=== PATIENT | female | born 1955 | race Caucasian/White ===

== ENCOUNTER 2024-04-03 12:19 | Day surgery (SDC) | payer OTHER, SELFPAY ==
[2024-03-24 10:29] VITALS: BMI 32.2
[2024-03-24 11:03] LABS: % Basophils 0.4 % (0-2); % Immature Granulocytes 0.2 % (0-0.5); % Lymphocytes 30.1 % (20.5-51.1); % Monocytes 8.5 % (1.7-9.3); % Neutrophils 58.8 % (42.2-75.2); Absolute Eosinophils 0.1 10^3/uL (0-0.7); Absolute Lymphocytes 1.6 10^3/uL (1.2-3.4); Absolute Monocytes 0.5 10^3/uL (0.1-0.6); Absolute Neutrophils 3.2 10^3/uL (1.4-6.5); Hematocrit 43.7 % (37.0-47.0); Hemoglobin 14.9 g/dL (12.0-16.0); Mean Corp Hgb Conc. 34.1 g/dL (33.0-37.0); Mean Corpuscular Hgb 28.7 pg (27.0-31.0); Mean Corpuscular Volume 84.2 fL (81.0-99.0); Mean Platelet Volume 9.7 fL (7.4-10.4); Nucleated Red Blood Cells % 0 %; Platelet Count 188 10^3/uL (130-400); Red Blood Cell Count 5.19 10^6/uL (4.20-5.40); Red Cell Dist. Width 12.6 % (11.5-14.5); White Blood Cell Count 5.4 10^3/uL (4.8-10.8)
[2024-03-24 11:49] LABS: ALT (SGPT) 24 U/L (0-35); AST (SGOT) 25 U/L (14-36); Albumin 4.2 g/dl (3.5-5.0); Alkaline Phosphatase 99 U/L (38-126); Blood Urea Nitrogen 23 mg/dl (7-17); Calcium 9.4 mg/dl (8.4-10.2); Carbon Dioxide 24 mmol/L (22-30); Chloride 105 mmol/L (98-107); Estimated Creatinine Clearance 88 ml/min; Glucose 208 mg/dl (70-99); Potassium 4.2 mmol/L (3.5-5.1); Sodium 138 mmol/L (135-145); Total Bilirubin 0.7 mg/dl (0.2-1.3); Total Protein 7.2 g/dl (6.3-8.2); eGFR > 60.00
[2024-04-03 12:36] VITALS: BMI 31.7
[2024-04-03 12:40] VITALS: BP 155/74
[2024-04-03 13:12] LABS: Glucose - Point of Care 192 mg/dl (70-99)
--- NOTE | 2024-04-03 15:13 | ITS.CL.PACE ---
[facility] - Pacemaker Implant
Pacemaker Implant
Procedure Report:
PACEMAKER GENERATOR CHANGE
Date of Procedure: 04/03/24
PROCEDURES:
1. Removal of dual chamber PPM generator at [facility]
2. Implant of new dual chamber PPM generator
INDICATION FOR PROCEDURE:
1. PPM generator at [facility]
2. Non-reversible symptomatic bradycardia due to sinus node dysfunction.
'Time out' called and confirmed
Antibiotic: Ancef
Sedation/anesthesia: Conscious sedation
The patient was prepped and draped in sterile fashion. Lidocaine with epi was used for local anesthesia. An incision was made along the previous incision and the device and leads were carefully dissected from the pocket. Hemostasis was obtained
with electrocautery. The leads were from the device header and tested using an external analyzer. The pocket was liberally irrigated with antibiotic solution. Once testing (see below) showed adequate and stable function, the leads were
connected to the generator header and the leads and generator were placed within the pocket. The pocket was closed in the typical fashion.
EXPLANTED PPM GENERATOR:
[employer]
IMPLANTED PPM GENERATOR:
[employer] Accolade L311 IS-1, [id number]
Existing RA lead: Guidant fineline II [id number]
Existing RVLead: Guidant fineline [id number]
DEVICE TESTING:
Sensing: RA 6 mV, RV 17 mV
Capture: RA 0.6 V@0.4ms, RV 1 V@ 1 ms
Ohms: RA 370 , RV 378
FINAL PROGRAMMING
Matt Pacing: DDD 50 - 130 ppm
COMPLICATIONS:
None
CONCLUSIONS:
1. Successful explant of dual chamber permanent pacemaker
2. Successful implant of dual chamber permanent pacemaker
RECOMMENDATIONS:
1. Routine post-op care
2. In-Office wound check in 7-14 days.
3. Office interrogation in 6-8 weeks
[2024-04-03 15:23] VITALS: BP 126/79
[2024-04-03 15:39] VITALS: BP 128/101
[2024-04-03 15:47] LABS: Glucose - Point of Care 153 mg/dl (70-99)
[2024-04-03 15:49] VITALS: BP 138/67
== END 2024-04-03 16:00 | disposition home or self-care (01) ==
LOC: CATH 12:19
PROVIDERS: ATTENDING PHYSICIAN Internal Medicine Cardiovascular Disease; FAMILY PHYSICIAN Student in an Organized Health Care Education/Training Program
DX: Z45.010 Encounter for checking and testing of cardiac pacemaker pulse generator [battery] (principal); I49.5 Sick sinus syndrome; I10 Essential (primary) hypertension; Z79.82 Long term (current) use of aspirin; Z79.899 Other long term (current) drug therapy; E11.9 Type 2 diabetes mellitus without complications; Z79.84 Long term (current) use of oral hypoglycemic drugs; E66.9 Obesity, unspecified; Z68.32 Body mass index [BMI] 32.0-32.9, adult
CPT/HCPCS: 33228; 36415; 80053; 82962; 83735; 85025; 93005; C1785